=== PATIENT | male | born 1945 | race Caucasian/White ===

== ENCOUNTER 2017-05-10 08:36 | Day surgery (SDC) | payer MEDICARE, OTHER ==
[2013-08-28 10:10] VITALS: BP 148/68
--- NOTE | 2017-05-12 11:46 | GI Report ---
REFERRING PHYSICIAN: Dr. Ankit Briggs AGENCY SALES REPRESENTATIVE: Geovanny Elizondo MD PROCEDURE MEDICATION: Propofol as per anesthesia. INDICATIONS: This is a 71-year-old man who had 7 polyps removed in 2013. He is a pack-and-a- half-a-day smoker for the last 50 years. He denies any change in stools or bleeding. PROCEDURE PERFORMED: Colonoscopy and polypectomies. PROCEDURE: An Olympus video colonoscope was advanced into the rectum. The prep was just fair. There was residual dark liquid that had to be lavaged in many areas of the colon to improve visibility. A very atonic redundant colon and it some maneuvering to reach the cecum. In the cecum itself, the patient has 3 flat polyps bothersome for serrated adenomas. He has had serrated adenomas in the past. Varying from 4 to 6 mm in size. The larger one was removed in 2 pieces and because of some oozing of blood, a hemoclip was placed. In the ascending colon, 3 flat polyps, serrated adenoma appearing, were also removed varying from 4 to 5 mm in size and submitted to pathology. In the rectum, there was a 4 mm polyp removed with electrocautery. He does also have diverticular disease of the sigmoid and descending colon. FINDINGS: 1. Seven polyps removed, 3 in the cecum, 3 in the ascending colon, and 1 in the rectum. 2. Diverticular disease of the colon. 3. Only fair prep. 4. Atonic redundant colon. 5. He has a large diastasis recti hernia. RECOMMENDATIONS: 1. He probably needs his colon looked at again in 3 years pending the pathology. 2. He needs a 2-day prep next time. 3. intermodal truck driver, I recommend a high-fiber diet. 4. Recommend strongly discontinuing tobacco usage. cc: Dr. Ankit COLUNGA
== END 2017-05-10 08:37 ==
LOC: OPSURG 08:36
PROVIDERS: ATTEND Internal Medicine Gastroenterology
DX: D12.0 Benign neoplasm of cecum (principal); D12.2 Benign neoplasm of ascending colon; K62.1 Rectal polyp; K57.30 Diverticulosis of large intestine without perforation or abscess without bleeding; K59.8 Other specified functional intestinal disorders; K45.8 Other specified abdominal hernia without obstruction or gangrene; F17.210 Nicotine dependence, cigarettes, uncomplicated
CPT/HCPCS: 88305; J2704; J7120; 45385; S1016

== ENCOUNTER 2019-09-05 20:24 | Emergency (ER) | payer MEDICARE, OTHER ==
--- NOTE | 2019-09-05 20:47 | ED Physician Documentation ---
Lower Extremity Problem - HISTORIAN Historian: patient - HPI Stated Complaint: Bleeding from wound to medial Rt big toe Chief Complaint: Lower Extremity Problem Additional Information: Patient presents to ED with right toe bleeding. He thought he has a wart and put Compound W on it. It began to bleed. He saw Dr. Singh today and was referred to a Fireperson. Tonight the toe began to bleed again. He was unable to stop the bleeding. He was an appointment tomorrow morning with Dermatology. Location of Injury: R foot Onset: days ago (2) Timing: still present Duration: constant Where: home Severity: mild Quality: other (bleeding) Exacerbated By: walking Relieved By: rest Associated Symptoms: denies: chest pain, shortness of breath - ROS CONST: no problems MS/SKIN/LYMPH: none CVS/RESP: none GI/: none EYES/ENT: none NERUO/PSYCH: denies: headache - PAST HX Past History: none, other (COPD on home oxygen) PE Risk Factors: none Surgeries/Procedures: none Allergies/Adverse Reactions: Allergies Allergy/AdvReac Type Severity Reaction Status Date / Time No Known Allergies Allergy Verified 09/05/19 20:36 - SOCIAL HX Smoking History: non-smoker Alcohol Use: none Drug Use: none - FAMILY HX Family History: none - VITAL SIGNS Vital Signs: Vital Signs Temp Pulse Resp BP Pulse Ox 85 28 H 158/78 99 09/05/19 20:24 09/05/19 20:24 09/05/19 20:24 09/05/19 20:24 - REVIEWED ASSESSMENTS Nursing Assessment Reviewed: Yes Vitals Reviewed: Yes Lower Extremity Problem - EXAM General Appearance: no distress Hips: bilateral hip: non-tender, normal inspection, normal range of motion, no evidence of injury Legs: bilateral: non-tender, normal inspection, normal range of motion, no evidence of injury Knees: bilateral: non-tender, normal inspection, normal range of motion, no evidence of injury Ankle: bilateral: non-tender, normal inspection, normal range of motion, no evidence of injury Foot: right foot: other (bleeding medial great toe, from 1 cm lesion), left foot: non-tender, normal inspection, normal range of motion, no evidence of injury Neuro/Tendon: normal sensation EENT: DONNIE RESPIRATORY: no resp distress, chest non-tender, wheezes (scattered occasional) CVS: reg rate & rhythm, heart sounds normal, equal pulses JOINT: nml ROM, Nml gait/weight bearing VASCULAR: no vascular compromise, pulses full/equal NEURO/PSYCH: oriented X3, mood/affect nml SKIN: warm/dry, normal color BACK: normal inspection Discharge Clincal Impression: Abrasion of right great toe Qualifiers: Encounter type: initial encounter Qualified Code(s): S90.411A - Abrasion, right great toe, initial encounter Referrals: Shahab Singh MD [Primary Care Provider] - 2 Days Additional Instructions: 1. Keep foot elevated (above heart level) while at rest 2. Do not bear weight on right foot 3. Keep bandage in place until seen by Dermatology 4. Follow up with Dermatology tomorrow 5. Return to ER for new or worsening symptoms Condition: Stable Disposition: 01 HOME, SELF-CARE Decision to Admit: NO Date of Decison to Admit: 09/05/19 Decision Time: 20:53
[2019-09-05 22:02] VITALS: BP 139/76
== END 2019-09-05 21:26 | disposition home or self-care (01) ==
LOC: ED 20:24
DX: S90.411A Abrasion, right great toe, initial encounter (principal); X50.9XXA Other and unspecified overexertion or strenuous movements or postures, initial encounter; Y92.009 Unspecified place in unspecified non-institutional (private) residence as the place of occurrence of the external cause; Y99.8 Other external cause status
CPT/HCPCS: 99281; 99282